=== PATIENT | male | born 1995 | race African-American/Black ===

== ENCOUNTER → 2019-01-08 | Outpatient (REF) | payer OTHER ==
[~2019-01-08] MED LIST: FLAG500T PO; LIDO4CRE4 EX
== END ==
LOC: M LAB REF 13:37
PROVIDERS: ATTEND Surgery
DX: T14.8XXA Other injury of unspecified body region, initial encounter (principal); Y92.9 Unspecified place or not applicable; Y93.9 Activity, unspecified
CPT/HCPCS: 11042; 88305; G0463

== ENCOUNTER 2019-02-13 15:27 | Emergency (ER) | payer OTHER ==
[~2019-02-13] VITALS: Ht 185.4 cm; Wt 79.5 kg
[2019-02-13 15:28] VITALS: BP 134/62
[2019-02-13] MEDS ORDERED: LIDO4CRE4 EX (15:32)
[2019-02-13 19:25] LABS: HEMATOCRIT 46.8 % (42.0-52.0); HEMOGLOBIN 15.6 g/dl (13.5-17.5); MEAN CORPUSCULAR HEMOGLOBIN 29.3 pg (27.0-33.0); MEAN CORPUSCULAR HGB CONC 33.3 g/dl (32.0-36.5); PLATELET COUNT, AUTOMATED 402 10^3/uL (150-450); RED BLOOD COUNT 5.32 10^6/uL (4.30-6.10); WHITE BLOOD COUNT 14.7 10^3/uL (4.0-10.0)
[2019-02-13 19:44] LABS: BLOOD UREA NITROGEN 10 MG/DL (7-18); CALCIUM LEVEL 9.5 MG/DL (8.5-10.1); CARBON DIOXIDE LEVEL 27 MEQ/L (21-32); CHLORIDE LEVEL 104 MEQ/L (98-107); CREATININE FOR GFR 0.87 MG/DL (0.70-1.30); GLOMERULAR FILTRATION RATE > 60.0 (>60); GLUCOSE, FASTING 94 MG/DL (70-100); POTASSIUM SERUM 3.9 MEQ/L (3.5-5.1); SODIUM LEVEL 139 MEQ/L (136-145)
[2019-02-13] MEDS ORDERED: NS 1,000 ML IV ONE (19:45)
[2019-02-13] MEDS ORDERED: KETOROLAC 30 MG/ML VIAL (J1885) IV ONE (19:45)
[2019-02-13] MEDS ORDERED: ISOVUE-370 76% 100ML VIAL (Q9967) As Ordered ONE (19:57)
[2019-02-13 20:22] LABS: ALBUMIN 4.3 GM/DL (3.2-5.2); ALT/SGPT 17 U/L (12-78); BILIRUBIN,DIRECT 0.2 MG/DL (0.0-0.2); BILIRUBIN,TOTAL 0.6 MG/DL (0.2-1.0); LIPASE 92 U/L (73-393); TOTAL PROTEIN 8.5 GM/DL (6.4-8.2)
--- NOTE | 2019-02-13 21:04 | REPVR ---
EXAM: CT Abdomen and Pelvis With Contrast EXAM DATE/TIME: 02/13/2019 8:20 PM CLINICAL HISTORY: 23 years old, male; Abdominal pain; Additional info: Abdominal pain, anal fissure, concern for fistula TECHNIQUE: Imaging protocol: Computed tomography of the abdomen and pelvis with intravenous contrast. Radiation optimization: All CT scans at this facility use at least one of these dose optimization techniques: automated exposure control; mA and/or kV adjustment per patient size (includes targeted exams where dose is matched to clinical indication); or iterative reconstruction. Contrast material: ISO 370; Contrast volume: 100 ml; Contrast route: IV; COMPARISON: No relevant prior studies available. FINDINGS: Liver: Normal. No mass. Gallbladder and bile ducts: Normal. No calcified stones. No ductal dilation. Pancreas: Normal. No ductal dilation. Spleen: Normal. No splenomegaly. Adrenals: Normal. No mass. Kidneys and ureters: Normal. No hydronephrosis. Stomach and bowel: Possible thickening of the wall of the distal terminal ileum with mucosal enhancement, findings which could indicate ileitis of any etiology including Crohn disease. Appendix: No evidence of appendicitis. Intraperitoneal space: Unremarkable. No free air. No significant fluid collection. Vasculature: Unremarkable. No abdominal aortic aneurysm. Lymph nodes: Ileocolic lymph nodes measure up to 14 mm. Bladder: Unremarkable as visualized. Reproductive: Unremarkable as visualized. Bones/joints: Bulging annulus and posterior disc protrusion at L5-S1 results in a moderate central spinal stenosis. Soft tissues: Unremarkable. IMPRESSION: Possible thickening of the wall of the distal terminal ileum with mucosal enhancement, findings which could indicate ileitis of any etiology including Crohn disease. Electronically signed by: Toby Mendoza On 02/13/2019 21:03:41 PM
[2019-02-13] MEDS ORDERED: FLAG500T PO (21:40)
[2019-02-13] MEDS ORDERED: metroNIDAZOLE (FLAGYL) 500 MG TAB PO ONE (22:00)
--- NOTE | 2019-02-14 15:07 | ED PDOC ---
Post-Departure Follow-Up ft mervat tan faxed formal report of ct ab/dp for fu Monet Shin MD Feb 14, 2019 15:07
== END 2019-02-13 22:35 | disposition home or self-care (01) ==
LOC: M ED 15:27
DX: A04.72 Enterocolitis due to Clostridium difficile, not specified as recurrent (principal); K60.1 Chronic anal fissure; R10.9 Unspecified abdominal pain; M48.061 Spinal stenosis, lumbar region without neurogenic claudication
CPT/HCPCS: 74177; 80048; 80076; 83690; 85027; 86850; 86900; 86901; 87507; 96361; 96374; 99284; J1885; Q9967

== ENCOUNTER → 2019-04-05 | Outpatient (REF) | payer OTHER ==
[2019-04-05 13:05] LABS: BASO # 0.1 10^3/uL (0.0-0.2); BASO % 0.6 % (0.0-1.0); EOS # 0.2 10^3/uL (0.0-0.5); EOS % 1.4 % (0.0-3.0); HEMATOCRIT 46.5 % (42.0-52.0); HEMOGLOBIN 15.3 g/dl (13.5-17.5); LYMPH # 2.8 10^3/uL (1.5-5.0); LYMPH % 22.1 % (24.0-44.0); MEAN CORPUSCULAR HEMOGLOBIN 29.4 pg (27.0-33.0); MEAN CORPUSCULAR HGB CONC 32.9 g/dl (32.0-36.5); MEAN CORPUSCULAR VOLUME 89.3 fl (80.0-96.0); MONO # 1.3 10^3/uL (0.0-0.8); MONO % 10.6 % (0.0-5.0); NEUTROPHILS # 8.1 10^3/uL (1.5-8.5); NEUTROPHILS % 64.9 % (36.0-66.0); PLATELET COUNT, AUTOMATED 419 10^3/uL (150-450); RED BLOOD COUNT 5.21 10^6/uL (4.30-6.10); WHITE BLOOD COUNT 12.5 10^3/uL (4.0-10.0)
[2019-04-05 14:10] LABS: ALT/SGPT 16 U/L (12-78); BILIRUBIN,TOTAL 0.9 MG/DL (0.2-1.0); BLOOD UREA NITROGEN 7 MG/DL (7-18); CALCIUM LEVEL 10.2 MG/DL (8.5-10.1); CARBON DIOXIDE LEVEL 26 MEQ/L (21-32); CHLORIDE LEVEL 103 MEQ/L (98-107); GLOMERULAR FILTRATION RATE > 60.0 (>60); GLUCOSE, FASTING 76 MG/DL (70-100); POTASSIUM SERUM 4.1 MEQ/L (3.5-5.1); SODIUM LEVEL 138 MEQ/L (136-145); TOTAL PROTEIN 8.1 GM/DL (6.4-8.2)
== END ==
LOC: M SFHCPLAZ 12:00
PROVIDERS: ATTEND Internal Medicine Infectious Disease
DX: Z01.812 Encounter for preprocedural laboratory examination (principal); A04.72 Enterocolitis due to Clostridium difficile, not specified as recurrent; M51.37 Other intervertebral disc degeneration, lumbosacral region
CPT/HCPCS: 80053; 85025; 87507; G0463

== ENCOUNTER → 2019-04-12 | Outpatient (CLI) | payer OTHER ==
[~2019-04-12] MED LIST changes: +PROHANCE 279.3MG/ML 15ML VIAL (A9576) As Ordered ONE
--- NOTE | 2019-04-12 16:06 | REP ---
MRI pelvis without and with IV gadolinium: History: Perineal abscess, anal normal fissure. Comparison CT study February 13, 2019. Technique: Axial, coronal, and sagittal imaging planes utilized. T1 and T2-weighted sequences include turbo spin echo and inversion recovery sequences with and without fat saturation. Gadolinium enhancement dose is 15 ml of intravenous ProHance. MRI findings: Cortical and medullary bone signal intensity are normal in the bony pelvic ring and proximal femurs. There is no evidence of hip joint effusion. Seminal vesicles, prostate and urinary bladder are unremarkable. There is no evidence of inguinal or pelvic lymphadenopathy. No abnormal intrapelvic fluid collection is seen. No abnormalities noted in the visualized bowel loops. There is an enhancing low linear 3 cm x 1.1 x 1.2 cm tract extending upward from the posterior aspect of the anus. This tract this ascends in the midline, perhaps just to the left of the midline towards the coccyx. It does not appear to communicate with the coccyx. It is compatible with a small perianal fistula. No other abnormalities seen in the perineum. No rectal wall thickening is appreciated. Impression: 3.0 x 1.1 x 1.2 cm enhancing tract a ascending in the perineum from the posterior aspect of the anal verge consistent with a perianal fistula. Electronically Signed by Gerry Schwartz MD 04/12/2019 04:24 P
== END ==
LOC: M RAD 14:24
PROVIDERS: ATTEND Internal Medicine Infectious Disease
DX: K61.0 Anal abscess (principal); K60.2 Anal fissure, unspecified

== ENCOUNTER → 2019-04-19 | Outpatient (CLI) | payer OTHER ==
[~2019-04-19] MED LIST changes: -PROHANCE 279.3MG/ML 15ML VIAL (A9576) As Ordered ONE
== END ==
LOC: M LAB 13:27
PROVIDERS: ATTEND Internal Medicine Gastroenterology
DX: R19.7 Diarrhea, unspecified (principal)

== ENCOUNTER 2019-04-30 13:12 | Day surgery (SDC) | payer OTHER ==
[~2019-04-30] VITALS: Ht 185.4 cm; Wt 74.3 kg
[~2019-04-30 13:12] MED LIST changes: +NS 1,000 ML IV ONE
--- NOTE | 2019-04-30 14:51 | ROOR ---
Patient Name: Arun Nicholas Procedure Date: 04/30/2019 2:18 PM Date of : 1995 Age: 23 Room: [facility] Gender: Male Note Status: Finalized Procedure: Colonoscopy Indications: Suspected Crohn's disease, Abnormal CT of the GI tract, Abnormal MRI of the GI tract Providers: Alberto SLAUGHTER MD Referring MD: JOSE GARCIA MD Requesting Provider: Medicines: Monitored Anesthesia Care Complications: No immediate complications. Procedure: Pre-Anesthesia Assessment: - The heart rate, respiratory rate, oxygen saturations, blood pressure, adequacy of pulmonary ventilation, and response to care were monitored throughout the procedure. The Colonoscope was introduced through the anus and advanced to 10 cm into the ileum. The colonoscopy was performed without difficulty. The patient tolerated the procedure well. The quality of the bowel preparation was adequate and unsatisfactory. Findings: An anal fissure was found on perianal exam. Multiple ten mm ulcers were found at the anus, in the rectum, in the transverse colon, in the ascending colon and at the ileocecal valve. Biopsies were taken with a cold forceps for histology. The terminal ileum contained multiple scattered aphthae. This was biopsied with a cold forceps for histology. Impression: - Preparation of the colon was suboptimal, but sufficient to assess for suspected inflammatory bowel disease. - Anal fissure (or fistulous tract opening) found on perianal exam. - Multiple deep and shallow ulcers at the anus, in the rectum, in the transverse colon, in the ascending colon and at the ileocecal valve. Biopsied. - Aphtha in the terminal ileum. Biopsied. 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 Biopsied to r/o infectious/viral. Recommendation: - Continue present medications. - Await pathology results. - While we are waiting for pathology reports, I will get preapproval for Remicade infusion started. - Return to my office in 1 week. Alberto Slaughter MD Alberto SLAUGHTER MD 04/30/2019 2:50:53 PM Electronically signed by Alberto SLAUGHTER MD Number of Addenda: 0 Note Initiated On: 04/30/2019 2:18 PM Estimated Blood Loss: Estimated blood loss: none.
[2019-04-30 15:15] VITALS: BP 133/78
== END 2019-04-30 15:32 | disposition home or self-care (01) ==
LOC: M OPP 13:12
PROVIDERS: ATTEND Internal Medicine Gastroenterology
DX: K60.2 Anal fissure, unspecified (principal); K63.89 Other specified diseases of intestine; R93.3 Abnormal findings on diagnostic imaging of other parts of digestive tract; R19.7 Diarrhea, unspecified; Z79.2 Long term (current) use of antibiotics

== ENCOUNTER 2019-05-03 06:46 | Emergency (ER) | payer OTHER ==
[~2019-05-03] VITALS: Ht 185.4 cm; Wt 72.7 kg
[~2019-05-03 06:46] MED LIST changes: -NS 1,000 ML IV ONE
[2019-05-03] MEDS ORDERED: NS 1,000 ML IV ONE (07:30)
[2019-05-03] MEDS ORDERED: LIDOCAINE 2% JELLY 6 ML SYRINGE TOP ONE (07:30)
[2019-05-03] MEDS ORDERED: LIDOCAINE 4% TOPICAL SOLN 50 ML BTL TOP ONE (07:30)
[2019-05-03 07:47] LABS: BASO # 0.1 10^3/uL (0.0-0.2); BASO % 0.5 % (0.0-1.0); EOS # 0.2 10^3/uL (0.0-0.5); EOS % 1.9 % (0.0-3.0); HEMATOCRIT 45.6 % (42.0-52.0); HEMOGLOBIN 14.6 g/dl (13.5-17.5); LYMPH # 1.7 10^3/uL (1.5-5.0); LYMPH % 13.7 % (24.0-44.0); MEAN CORPUSCULAR HEMOGLOBIN 28.1 pg (27.0-33.0); MEAN CORPUSCULAR VOLUME 87.7 fl (80.0-96.0); MONO % 8.1 % (0.0-5.0); NEUTROPHILS # 9.2 10^3/uL (1.5-8.5); NEUTROPHILS % 75.4 % (36.0-66.0); PLATELET COUNT, AUTOMATED 481 10^3/uL (150-450); WHITE BLOOD COUNT 12.3 10^3/uL (4.0-10.0)
[2019-05-03 08:10] LABS: ALBUMIN 3.3 GM/DL (3.2-5.2); ALT/SGPT 17 U/L (12-78); BILIRUBIN,DIRECT < 0.1 MG/DL (0.0-0.2); BILIRUBIN,TOTAL 0.7 MG/DL (0.2-1.0); LIPASE 150 U/L (73-393); TOTAL PROTEIN 8.2 GM/DL (6.4-8.2)
[2019-05-03] MEDS ORDERED: MIRA3350 PO (09:23)
[2019-05-03] MEDS ORDERED: NORC1TAB7 PO ×4 (09:23→09:47)
[2019-05-03 10:01] VITALS: BP 118/58
== END 2019-05-03 10:26 | disposition home or self-care (01) ==
LOC: M ED 06:46
DX: K92.2 Gastrointestinal hemorrhage, unspecified (principal); K62.89 Other specified diseases of anus and rectum; K60.2 Anal fissure, unspecified

== ENCOUNTER → 2019-05-05 | Outpatient (CLI) | payer OTHER ==
[~2019-05-05] MED LIST changes: +MIRA3350 PO; +NORC1TAB7 PO
[2019-05-05 14:22] LABS: BASO # 0.1 10^3/uL (0.0-0.2); BASO % 0.3 % (0.0-1.0); EOS # 0.2 10^3/uL (0.0-0.5); EOS % 0.8 % (0.0-3.0); HEMATOCRIT 39.1 % (42.0-52.0); HEMOGLOBIN 12.4 g/dl (13.5-17.5); LYMPH # 2.7 10^3/uL (1.5-5.0); MEAN CORPUSCULAR HEMOGLOBIN 27.9 pg (27.0-33.0); MEAN CORPUSCULAR HGB CONC 31.7 g/dl (32.0-36.5); MEAN CORPUSCULAR VOLUME 88.1 fl (80.0-96.0); MONO # 1.7 10^3/uL (0.0-0.8); MONO % 9.6 % (0.0-5.0); NEUTROPHILS # 13.4 10^3/uL (1.5-8.5); NEUTROPHILS % 73.7 % (36.0-66.0); PLATELET COUNT, AUTOMATED 530 10^3/uL (150-450); RED BLOOD COUNT 4.44 10^6/uL (4.30-6.10); WHITE BLOOD COUNT 18.1 10^3/uL (4.0-10.0)
[2019-05-05 14:45] LABS: ALBUMIN 3.2 GM/DL (3.2-5.2); ALT/SGPT 17 U/L (12-78); BILIRUBIN,TOTAL 0.4 MG/DL (0.2-1.0); BLOOD UREA NITROGEN 6 MG/DL (7-18); CALCIUM LEVEL 9.1 MG/DL (8.5-10.1); CARBON DIOXIDE LEVEL 28 MEQ/L (21-32); CHLORIDE LEVEL 101 MEQ/L (98-107); CREATININE FOR GFR 0.85 MG/DL (0.70-1.30); GLOMERULAR FILTRATION RATE > 60.0 (>60); GLUCOSE, FASTING 89 MG/DL (70-100); POTASSIUM SERUM 4.2 MEQ/L (3.5-5.1); SODIUM LEVEL 137 MEQ/L (136-145); TOTAL PROTEIN 7.8 GM/DL (6.4-8.2)
[2019-05-07 11:30] LABS: VITAMIN B12 LEVEL 452 PG/ML (247-911)
[2019-05-07 11:41] LABS: HEPATITIS B SURFACE ANTIGEN NEGATIVE (NEGATIVE)
== END ==
LOC: M LAB 12:52
PROVIDERS: ATTEND Internal Medicine Gastroenterology
DX: K50.818 Crohn's disease of both small and large intestine with other complication (principal); K62.5 Hemorrhage of anus and rectum

== ENCOUNTER → 2019-07-19 | Outpatient (CLI) | payer OTHER ==
[2019-07-19 14:40] LABS: BASO # 0.1 10^3/uL (0.0-0.2); BASO % 0.3 % (0.0-1.0); EOS # 0.1 10^3/uL (0.0-0.5); EOS % 0.8 % (0.0-3.0); HEMATOCRIT 48.4 % (42.0-52.0); HEMOGLOBIN 15.2 g/dl (13.5-17.5); LYMPH # 3.8 10^3/uL (1.5-5.0); LYMPH % 23.5 % (24.0-44.0); MEAN CORPUSCULAR HGB CONC 31.4 g/dl (32.0-36.5); MEAN CORPUSCULAR VOLUME 89.1 fl (80.0-96.0); MONO # 1.4 10^3/uL (0.0-0.8); MONO % 8.7 % (0.0-5.0); NEUTROPHILS # 10.6 10^3/uL (1.5-8.5); NEUTROPHILS % 66.2 % (36.0-66.0); PLATELET COUNT, AUTOMATED 421 10^3/uL (150-450); RED BLOOD COUNT 5.43 10^6/uL (4.30-6.10)
[2019-07-19 14:51] LABS: ALBUMIN 3.9 GM/DL (3.2-5.2); ALT/SGPT 54 U/L (12-78); BILIRUBIN,TOTAL 0.4 MG/DL (0.2-1.0); BLOOD UREA NITROGEN 8 MG/DL (7-18); CALCIUM LEVEL 9.2 MG/DL (8.5-10.1); CARBON DIOXIDE LEVEL 29 MEQ/L (21-32); CHLORIDE LEVEL 102 MEQ/L (98-107); CREATININE FOR GFR 0.79 MG/DL (0.70-1.30); GLOMERULAR FILTRATION RATE > 60.0 (>60); GLUCOSE, FASTING 107 MG/DL (70-100); POTASSIUM SERUM 3.9 MEQ/L (3.5-5.1); SODIUM LEVEL 138 MEQ/L (136-145); TOTAL PROTEIN 7.9 GM/DL (6.4-8.2)
== END ==
LOC: M LAB 13:47
PROVIDERS: ATTEND Internal Medicine Gastroenterology
DX: K50.813 Crohn's disease of both small and large intestine with fistula (principal)

== ENCOUNTER 2019-09-13 13:34 | Outpatient (CLI) | payer OTHER ==
[~2019-09-13] VITALS: Ht 185.4 cm; Wt 82.0 kg
[2019-09-13] MEDS ORDERED: ACETAMINOPHEN 650MG PO PRIOR TO INFUSION PO ONE (14:00)
[2019-09-13] MEDS ORDERED: diphenhydrAMINE 25MG PO PRIOR TO INFUSION PO ONE (14:00)
[2019-09-13] MEDS ORDERED: NS 1,000 ML IV SCH (14:00)
[2019-09-13] MEDS ORDERED: inFLIXimab INJECTION 500 MG in NS 200 ML IV ONE (14:00)
[2019-09-13] MEDS ORDERED: OXYC1TAB23 PO (14:00)
== END 2019-09-13 16:45 | disposition home or self-care (01) ==
LOC: M INFU 13:34
PROVIDERS: ATTEND Internal Medicine Gastroenterology
DX: K50.90 Crohn's disease, unspecified, without complications (principal)
CPT/HCPCS: 96413; 96415; J1745

== ENCOUNTER 2019-09-27 13:24 | Outpatient (CLI) | payer OTHER ==
[~2019-09-27] VITALS: Ht 185.4 cm; Wt 82.1 kg
[~2019-09-27 13:24] MED LIST changes: +OXYC1TAB23 PO
[2019-09-27 13:30] VITALS: BP 127/68
[2019-09-27] MEDS ORDERED: ACETAMINOPHEN 650MG ER TAB (TYLENOL ARTHRITIS) PO ONE (13:30)
[2019-09-27] MEDS ORDERED: diphenhydrAMINE 25MG CAP PO ONE (13:30)
[2019-09-27] MEDS ORDERED: inFLIXimab INJECTION 500 MG in NS 200 ML IV ONE ×2 (13:30→14:15)
[2019-09-27] MEDS ORDERED: NS 1,000 ML IV SCH (13:30)
[2019-09-27 16:15] VITALS: BP 125/60
== END 2019-09-27 16:10 | disposition home or self-care (01) ==
LOC: M INFU 13:24
PROVIDERS: ATTEND Internal Medicine Gastroenterology
DX: K50.90 Crohn's disease, unspecified, without complications (principal)
CPT/HCPCS: 96413; 96415; J1745

== ENCOUNTER 2019-10-25 08:59 | Outpatient (CLI) | payer OTHER ==
[~2019-10-25] VITALS: Ht 185.4 cm; Wt 82.1 kg
[2019-10-25] VITALS (9 sets, daily range): BP systolic 102–135; BP diastolic 52–73
[2019-10-25] MEDS ORDERED: NS 1,000 ML IV SCH (09:15)
[2019-10-25] MEDS ORDERED: diphenhydrAMINE 25MG PO PRIOR TO INFUSION PO ONE (09:15)
[2019-10-25] MEDS ORDERED: inFLIXimab INJECTION 500 MG in NS 200 ML IV ONE (09:15)
[2019-10-25] MEDS ORDERED: ACETAMINOPHEN 650MG PO PRIOR TO INFUSION PO ONE (09:15)
[2019-10-25] MEDS ORDERED: INFL10VL IV (09:24)
== END 2019-10-25 12:00 | disposition home or self-care (01) ==
LOC: M INFU 08:59
PROVIDERS: ATTEND Internal Medicine Gastroenterology
DX: K50.90 Crohn's disease, unspecified, without complications (principal)
CPT/HCPCS: 96413; 96415; J1745

== ENCOUNTER 2019-12-20 11:33 | Outpatient (CLI) | payer OTHER ==
[~2019-12-20] VITALS: Ht 185.4 cm; Wt 82.1 kg
[2019-12-20] VITALS (7 sets, daily range): BP systolic 94–128; BP diastolic 46–56
[~2019-12-20 11:33] MED LIST changes: +INFL10VL IV
[2019-12-20] MEDS ORDERED: diphenhydrAMINE 25MG PO PRIOR TO INFUSION PO ONE (12:00)
[2019-12-20] MEDS ORDERED: NS 1,000 ML IV SCH (12:00)
[2019-12-20] MEDS ORDERED: ACETAMINOPHEN 650MG PO PRIOR TO INFUSION PO ONE (12:00)
[2019-12-20] MEDS ORDERED: inFLIXimab INJECTION 500 MG in NS 200 ML IV ONE (12:00)
== END 2019-12-20 14:25 | disposition home or self-care (01) ==
LOC: M INFU 11:33
PROVIDERS: ATTEND Internal Medicine Gastroenterology
DX: K50.90 Crohn's disease, unspecified, without complications (principal)
CPT/HCPCS: 96413; 96415; J1745

== ENCOUNTER 2020-01-07 12:30 | Outpatient (CLI) | payer OTHER ==
[2020-01-07] MEDS ORDERED: ACETAMINOPHEN TAB 650MG DOSE (2X325MG) ONE (12:31)
[2020-01-07] MEDS ORDERED: inFLIXimab 100MG/10ML VIAL (REMICADE) J1745 PER 10MG ONE (12:31)
[2020-01-07] MEDS ORDERED: diphenhydrAMINE 25MG CAP ONE (12:31)
[2020-01-07] MEDS ORDERED: ACETAMINOPHEN TAB 650MG DOSE (2X325MG) As Ordered ONE (12:55)
[2020-01-07] MEDS ORDERED: diphenhydrAMINE 25MG CAP As Ordered ONE (12:56)
== END 2020-01-07 15:30 | disposition home or self-care (01) ==
LOC: M INFU 12:30
PROVIDERS: ATTEND Internal Medicine Gastroenterology
DX: K50.90 Crohn's disease, unspecified, without complications (principal)
CPT/HCPCS: 96413; 96415; J1745

== ENCOUNTER 2020-03-03 12:31 | Outpatient (CLI) | payer OTHER ==
[2020-03-03] VITALS (9 sets, daily range): BP systolic 94–123; BP diastolic 44–60
[~2020-03-03] VITALS: Ht 185.4 cm; Wt 80.0 kg
[~2020-03-03 12:31] MED LIST changes: +ACETAMINOPHEN 650MG PO PRIOR TO INFUSION PO ONE; +NS 1,000 ML IV SCH; +diphenhydrAMINE 25MG PO PRIOR TO INFUSION PO ONE; +inFLIXimab INJECTION 800 MG in NS 170 ML IV ONE
[2020-03-03] MEDS ORDERED: diphenhydrAMINE 25MG CAP As Ordered ONE (12:55)
[2020-03-03] MEDS ORDERED: ACETAMINOPHEN TAB 650MG DOSE (2X325MG) As Ordered ONE (12:55)
== END 2020-03-03 15:45 | disposition home or self-care (01) ==
LOC: M INFU 12:31
PROVIDERS: ATTEND Internal Medicine Gastroenterology
DX: K50.113 Crohn's disease of large intestine with fistula (principal)
CPT/HCPCS: 96413; 96415; J1745

== ENCOUNTER → 2020-03-05 | Outpatient (CLI) | payer OTHER ==
[~2020-03-05] MED LIST changes: -ACETAMINOPHEN 650MG PO PRIOR TO INFUSION PO ONE; -NS 1,000 ML IV SCH; -diphenhydrAMINE 25MG PO PRIOR TO INFUSION PO ONE; -inFLIXimab INJECTION 800 MG in NS 170 ML IV ONE
[2020-03-05 14:22] LABS: BASO # 0.1 10^3/uL (0.0-0.2); BASO % 0.6 % (0.0-1.0); EOS # 0.3 10^3/uL (0.0-0.5); HEMATOCRIT 41.5 % (42.0-52.0); HEMOGLOBIN 13.3 g/dl (13.5-17.5); LYMPH # 3.7 10^3/uL (1.5-5.0); LYMPH % 34.1 % (24.0-44.0); MEAN CORPUSCULAR HEMOGLOBIN 27.4 pg (27.0-33.0); MEAN CORPUSCULAR VOLUME 85.6 fl (80.0-96.0); MONO # 0.6 10^3/uL (0.0-0.8); MONO % 5.8 % (0.0-5.0); NEUTROPHILS # 6.1 10^3/uL (1.5-8.5); PLATELET COUNT, AUTOMATED 496 10^3/uL (150-450); RED BLOOD COUNT 4.85 10^6/uL (4.30-6.10); WHITE BLOOD COUNT 10.8 10^3/uL (4.0-10.0)
[2020-03-05 14:47] LABS: BLOOD UREA NITROGEN 10 MG/DL (7-18); CALCIUM LEVEL 9.5 MG/DL (8.5-10.1); CARBON DIOXIDE LEVEL 27 MEQ/L (21-32); CHLORIDE LEVEL 106 MEQ/L (98-107); CREATININE FOR GFR 0.84 MG/DL (0.70-1.30); GLOMERULAR FILTRATION RATE > 60.0 (>60); GLUCOSE, FASTING 101 MG/DL (70-100); POTASSIUM SERUM 4.2 MEQ/L (3.5-5.1); SODIUM LEVEL 137 MEQ/L (136-145)
[2020-03-05 14:48] LABS: ALBUMIN 3.7 GM/DL (3.2-5.2); ALT/SGPT 18 U/L (12-78); BILIRUBIN,TOTAL 0.3 MG/DL (0.2-1.0); TOTAL PROTEIN 8.6 GM/DL (6.4-8.2)
== END ==
LOC: M LAB 13:23
PROVIDERS: ATTEND Internal Medicine Gastroenterology
DX: K50.813 Crohn's disease of both small and large intestine with fistula (principal)

== ENCOUNTER → 2020-03-19 | Outpatient (CLI) | payer OTHER ==
[2020-03-19 17:05] LABS: BASO # 0.1 10^3/uL (0.0-0.2); BASO % 0.7 % (0.0-1.0); EOS # 0.5 10^3/uL (0.0-0.5); EOS % 4.5 % (0.0-3.0); HEMATOCRIT 42.7 % (42.0-52.0); HEMOGLOBIN 13.6 g/dl (13.5-17.5); LYMPH # 4.2 10^3/uL (1.5-5.0); LYMPH % 37.9 % (24.0-44.0); MEAN CORPUSCULAR HEMOGLOBIN 27.6 pg (27.0-33.0); MEAN CORPUSCULAR HGB CONC 31.9 g/dl (32.0-36.5); MEAN CORPUSCULAR VOLUME 86.8 fl (80.0-96.0); MONO # 0.9 10^3/uL (0.0-0.8); MONO % 7.9 % (0.0-5.0); NEUTROPHILS # 5.4 10^3/uL (1.5-8.5); NEUTROPHILS % 48.7 % (36.0-66.0); PLATELET COUNT, AUTOMATED 430 10^3/uL (150-450); RED BLOOD COUNT 4.92 10^6/uL (4.30-6.10); WHITE BLOOD COUNT 11.1 10^3/uL (4.0-10.0)
[2020-03-19 17:29] LABS: ALBUMIN 3.9 GM/DL (3.2-5.2); ALT/SGPT 21 U/L (12-78); BILIRUBIN,TOTAL 0.3 MG/DL (0.2-1.0); BLOOD UREA NITROGEN 10 MG/DL (7-18); CALCIUM LEVEL 9.2 MG/DL (8.5-10.1); CARBON DIOXIDE LEVEL 26 MEQ/L (21-32); CHLORIDE LEVEL 107 MEQ/L (98-107); GLOMERULAR FILTRATION RATE > 60.0 (>60); GLUCOSE, FASTING 129 MG/DL (70-100); POTASSIUM SERUM 4.3 MEQ/L (3.5-5.1); SODIUM LEVEL 139 MEQ/L (136-145); TOTAL PROTEIN 8.2 GM/DL (6.4-8.2)
== END ==
LOC: M LAB 16:04
PROVIDERS: ATTEND Internal Medicine Gastroenterology
DX: K50.813 Crohn's disease of both small and large intestine with fistula (principal)

== ENCOUNTER → 2020-04-01 | Outpatient (CLI) | payer OTHER ==
[2020-04-01 16:07] LABS: BASO # 0.1 10^3/uL (0.0-0.2); BASO % 0.7 % (0.0-1.0); EOS # 0.4 10^3/uL (0.0-0.5); EOS % 4.2 % (0.0-3.0); HEMATOCRIT 45.7 % (42.0-52.0); HEMOGLOBIN 14.7 g/dl (13.5-17.5); LYMPH # 3.1 10^3/uL (1.5-5.0); LYMPH % 31.5 % (24.0-44.0); MEAN CORPUSCULAR HEMOGLOBIN 28.1 pg (27.0-33.0); MEAN CORPUSCULAR HGB CONC 32.2 g/dl (32.0-36.5); MEAN CORPUSCULAR VOLUME 87.4 fl (80.0-96.0); MONO # 0.9 10^3/uL (0.0-0.8); MONO % 9.2 % (0.0-5.0); NEUTROPHILS # 5.4 10^3/uL (1.5-8.5); NEUTROPHILS % 54.2 % (36.0-66.0); PLATELET COUNT, AUTOMATED 415 10^3/uL (150-450); RED BLOOD COUNT 5.23 10^6/uL (4.30-6.10); WHITE BLOOD COUNT 9.9 10^3/uL (4.0-10.0)
[2020-04-01 16:39] LABS: ALBUMIN 4.2 GM/DL (3.2-5.2); ALT/SGPT 20 U/L (12-78); BILIRUBIN,TOTAL 0.3 MG/DL (0.2-1.0); BLOOD UREA NITROGEN 10 MG/DL (7-18); CALCIUM LEVEL 9.6 MG/DL (8.5-10.1); CARBON DIOXIDE LEVEL 26 MEQ/L (21-32); CHLORIDE LEVEL 105 MEQ/L (98-107); CREATININE FOR GFR 0.74 MG/DL (0.70-1.30); GLOMERULAR FILTRATION RATE > 60.0 (>60); GLUCOSE, FASTING 79 MG/DL (70-100); POTASSIUM SERUM 4.2 MEQ/L (3.5-5.1); SODIUM LEVEL 136 MEQ/L (136-145); TOTAL PROTEIN 8.8 GM/DL (6.4-8.2)
[2020-04-09 07:22] LABS: 6-TGN 239 (230-400); 6MMPN 1303 (<5700)
== END ==
LOC: M LAB 14:12
PROVIDERS: ATTEND Internal Medicine Gastroenterology
DX: K50.813 Crohn's disease of both small and large intestine with fistula (principal)

== ENCOUNTER 2020-04-28 12:50 | Outpatient (CLI) | payer OTHER ==
[2020-04-28] VITALS (8 sets, daily range): BP systolic 105–126; BP diastolic 52–58
[~2020-04-28] VITALS: Ht 185.4 cm; Wt 80.0 kg
[~2020-04-28 12:50] MED LIST changes: +ACETAMINOPHEN 650MG PO PRIOR TO INFUSION PO ONE; +NS 1,000 ML IV SCH; +diphenhydrAMINE 25MG PO PRIOR TO INFUSION PO ONE; +inFLIXimab INJECTION 800 MG in NS 170 ML IV ONE
== END 2020-04-28 15:45 | disposition home or self-care (01) ==
LOC: M INFU 12:50
PROVIDERS: ATTEND Internal Medicine Gastroenterology
DX: K50.90 Crohn's disease, unspecified, without complications (principal)
CPT/HCPCS: 96413; 96415; J1745

== ENCOUNTER 2020-06-23 12:28 | Outpatient (CLI) | payer OTHER ==
[~2020-06-23] VITALS: Ht 185.4 cm; Wt 80.0 kg
[~2020-06-23 12:28] MED LIST changes: -ACETAMINOPHEN 650MG PO PRIOR TO INFUSION PO ONE; -NS 1,000 ML IV SCH; -diphenhydrAMINE 25MG PO PRIOR TO INFUSION PO ONE; -inFLIXimab INJECTION 800 MG in NS 170 ML IV ONE
[2020-06-23] MEDS ORDERED: ACETAMINOPHEN 650MG PO PRIOR TO INFUSION PO ONE (12:30)
[2020-06-23] MEDS ORDERED: inFLIXimab INJECTION 800 MG in NS 170 ML IV ONE (12:30)
[2020-06-23] MEDS ORDERED: NS 1,000 ML IV SCH (12:30)
[2020-06-23] MEDS ORDERED: diphenhydrAMINE 25MG PO PRIOR TO INFUSION PO ONE (12:30)
[2020-06-23 12:40] VITALS: BP 127/59
[2020-06-23 13:45] VITALS: BP 111/65
[2020-06-23 14:45] VITALS: BP 109/61
== END 2020-06-23 14:40 | disposition home or self-care (01) ==
LOC: M INFU 12:28
PROVIDERS: ATTEND Internal Medicine Gastroenterology
DX: K50.90 Crohn's disease, unspecified, without complications (principal)
CPT/HCPCS: 96413; J1745

== ENCOUNTER → 2020-07-30 | Outpatient (CLI) | payer OTHER ==
[~2020-07-30] MED LIST changes: +ISOVUE-370 76% 100ML VIAL As Ordered ONE
--- NOTE | 2020-07-31 07:27 | REP ---
INDICATION: CROHN'S. COMPARISON: 02/13/2019 TECHNIQUE: Axial contrast-enhanced images from the lung bases to the pubic symphysis using 100 cc Isovue 370 intravenous contrast material. Precontrast images of the abdomen along with coronal and sagittal reformations obtained. This CT examination was performed using the following dose reduction techniques: Automated exposure control, adjustment of mA and/or kv according to the patient's size, and the use of iterative reconstruction technique. FINDINGS: Lung bases are clear. Visualized heart and pericardium normal. Liver, spleen, pancreas, gallbladder, bilateral adrenal glands and kidneys are normal. The enteric system including stomach, small, and large bowel appears normal. No evidence for obstruction or acute inflammatory process. Normal terminal ileum and appendix are identified in the right lower quadrant. No acute or chronic enteric process identified. Few scattered sigmoid diverticula noted. Pelvis demonstrates normal bladder and age-appropriate prostate/seminal vesicles. Few mildly prominent bilateral inguinal lymph nodes are identified and nonspecific. No ascites. No free air. No intraperitoneal or retroperitoneal adenopathy. Abdominal aorta and vasculature appear normal. Musculoskeletal structures are intact and without acute osseous abnormality. IMPRESSION: No acute abdominopelvic pathology appreciated. Normal appearance to the enteric system. <Electronically signed by Rylan Alcocer > 07/31/20 [id number]
== END ==
LOC: M RAD 18:45
PROVIDERS: ATTEND Surgery
DX: K50.113 Crohn's disease of large intestine with fistula (principal); K60.3 Anal fistula
CPT/HCPCS: 36415; 74178; 80053; 85025; 86480; 87340; Q9967

== ENCOUNTER → 2020-07-30 | Outpatient (CLI) | payer OTHER ==
[~2020-07-30] MED LIST changes: -ISOVUE-370 76% 100ML VIAL As Ordered ONE
[2020-07-30 13:07] LABS: BASO # 0.1 10^3/uL (0.0-0.2); BASO % 0.8 % (0.0-1.0); EOS # 0.3 10^3/uL (0.0-0.5); EOS % 3.3 % (0.0-3.0); HEMATOCRIT 45.2 % (42.0-52.0); HEMOGLOBIN 14.6 g/dl (13.5-17.5); LYMPH # 3.5 10^3/uL (1.5-5.0); LYMPH % 39.9 % (24.0-44.0); MEAN CORPUSCULAR HEMOGLOBIN 28.6 pg (27.0-33.0); MEAN CORPUSCULAR HGB CONC 32.3 g/dl (32.0-36.5); MEAN CORPUSCULAR VOLUME 88.6 fl (80.0-96.0); MONO # 0.7 10^3/uL (0.0-0.8); MONO % 8.4 % (2.0-8.0); NEUTROPHILS # 4.2 10^3/uL (1.5-8.5); NEUTROPHILS % 47.4 % (36.0-66.0); PLATELET COUNT, AUTOMATED 394 10^3/uL (150-450); WHITE BLOOD COUNT 8.8 10^3/uL (4.0-10.0)
[2020-07-30 13:36] LABS: ALBUMIN 4.1 GM/DL (3.2-5.2); ALT/SGPT 41 U/L (12-78); BILIRUBIN,TOTAL 0.4 MG/DL (0.2-1.0); BLOOD UREA NITROGEN 10 MG/DL (7-18); CALCIUM LEVEL 9.6 MG/DL (8.5-10.1); CARBON DIOXIDE LEVEL 26 MEQ/L (21-32); CHLORIDE LEVEL 106 MEQ/L (98-107); CREATININE FOR GFR 0.84 MG/DL (0.70-1.30); GLOMERULAR FILTRATION RATE > 60.0 (>60); GLUCOSE, FASTING 76 MG/DL (70-100); POTASSIUM SERUM 4.4 MEQ/L (3.5-5.1); SODIUM LEVEL 139 MEQ/L (136-145); TOTAL PROTEIN 8.1 GM/DL (6.4-8.2)
[2020-07-30 13:49] LABS: HEPATITIS B SURFACE ANTIGEN NEGATIVE (NEGATIVE)
== END ==
LOC: M LAB 12:07
PROVIDERS: ATTEND Internal Medicine Gastroenterology
DX: K50.813 Crohn's disease of both small and large intestine with fistula (principal); K60.3 Anal fistula

== ENCOUNTER → 2020-07-31 | Outpatient (REF) | payer OTHER | LOC: M LAB REF 13:22 | PROVIDERS: ATTEND Internal Medicine Gastroenterology | DX: K50.813 Crohn's disease of both small and large intestine with fistula (principal); K60.3 Anal fistula ==

== ENCOUNTER 2020-08-18 12:39 | Outpatient (CLI) | payer OTHER ==
[~2020-08-18] VITALS: Ht 185.4 cm; Wt 92.9 kg
[~2020-08-18 12:39] MED LIST changes: +ACETAMINOPHEN 650MG PO PRIOR TO INFUSION PO ONE; +NS 1,000 ML IV SCH; +inFLIXimab INJECTION 900 MG in NS 160 ML IV ONE
[2020-08-18 12:45] VITALS: BP 125/60
[2020-08-18 14:15] VITALS: BP 129/66
[2020-08-18 14:55] VITALS: BP 135/55
== END 2020-08-18 14:55 | disposition home or self-care (01) ==
LOC: M INFU 12:39
PROVIDERS: ATTEND Internal Medicine Gastroenterology
DX: K50.90 Crohn's disease, unspecified, without complications (principal)
CPT/HCPCS: 96365; J1745

== ENCOUNTER → 2020-09-02 | Outpatient (CLI) | payer OTHER ==
[~2020-09-02] MED LIST changes: -ACETAMINOPHEN 650MG PO PRIOR TO INFUSION PO ONE; -NS 1,000 ML IV SCH; -inFLIXimab INJECTION 900 MG in NS 160 ML IV ONE
--- NOTE | 2020-09-02 17:04 | REP ---
INDICATION: CROHNS, ANAL ABSCESS. COMPARISON: 06/21/2019. TECHNIQUE: Multiple sequences obtained in the axial, coronal and sagittal planes prior to and following the intravenous administration of 19 mL ProHance. FINDINGS: The previously noted perianal fistula containing fluid appears to have resolved. At that location there is thin linear high signal on T2 weighted images having the appearance of a thin collapsed fissure with no internal fluid. This is seen posteriorly between the gluteal crease and anus. Otherwise no new perianal fistula or abscess is seen. There is a tiny amount of free fluid in the pelvis. Intrapelvic structures are otherwise unremarkable and unchanged. No abnormal osseous abnormality is seen. There is [id number] disc bulging at the L5-S1 disc level. There is mild bilateral inguinal adenopathy. A few mildly enlarged lymph nodes are seen in both inguinal regions, the largest on the right has a short axis dimension of 1.3 cm and the largest on the left has a short axis dimension of approximately 1.5 cm. IMPRESSION: At the site of the previously noted posterior perianal fistula containing fluid, the fluid has resolved and there is evidence of a thin linear fissure at that location. No new fistula or abscess is seen in this region. Mild bilateral inguinal adenopathy. Mild to moderate disc bulging L5-S1 disc level. <Electronically signed by Juanpablo Gonzalez > 09/02/20 [id number]
== END ==
LOC: M PLARAD 13:31
PROVIDERS: ATTEND Internal Medicine Gastroenterology
DX: K50.813 Crohn's disease of both small and large intestine with fistula (principal); K60.3 Anal fistula; K61.0 Anal abscess

== ENCOUNTER 2020-09-10 13:03 | Outpatient (CLI) | payer OTHER ==
[~2020-09-10] VITALS: Ht 182.9 cm; Wt 92.9 kg
[~2020-09-10 13:03] MED LIST changes: +VEDOLIZUMAB 300 MG in NS 250 ML IV ONE
[2020-09-10 13:30] VITALS: BP 126/73
[2020-09-10 13:31] VITALS: BP 126/73
[2020-09-10 14:21] VITALS: BP 113/57
== END 2020-09-10 14:20 | disposition home or self-care (01) ==
LOC: M INFU 13:03
PROVIDERS: ATTEND Internal Medicine Gastroenterology
DX: K50.90 Crohn's disease, unspecified, without complications (principal)
CPT/HCPCS: 96365; J3380

== ENCOUNTER 2020-09-24 12:44 | Outpatient (CLI) | payer OTHER ==
[~2020-09-24] VITALS: Ht 185.4 cm; Wt 97.5 kg
[2020-09-24 13:07] VITALS: BP 131/72
[2020-09-24 13:09] VITALS: BP 131/72
[2020-09-24 14:20] VITALS: BP 122/70
== END 2020-09-24 14:20 | disposition home or self-care (01) ==
LOC: M INFU 12:44
PROVIDERS: ATTEND Internal Medicine Gastroenterology
DX: K50.90 Crohn's disease, unspecified, without complications (principal)

== ENCOUNTER 2020-10-20 15:15 | Outpatient (CLI) | payer OTHER ==
[~2020-10-20] VITALS: Ht 185.4 cm; Wt 100.0 kg
[2020-10-20 15:20] VITALS: BP 137/74
[2020-10-20 16:28] VITALS: BP 127/70
== END 2020-10-20 16:30 | disposition home or self-care (01) ==
LOC: M INFU 15:15
PROVIDERS: ATTEND Internal Medicine Gastroenterology
DX: K50.90 Crohn's disease, unspecified, without complications (principal)
CPT/HCPCS: 96365; J3380